=== PATIENT | male | born 1965 ===

== ENCOUNTER → 2024-12-23 12:57 | Outpatient (ROUT) | payer SELFPAY ==
[2024-12-23 13:39] LABS: Add Manual Diff / Slide Review NO; Hematocrit 43.0 % (41-53); Hemoglobin 14.5 g/dL (13.5-17.5); Lymphocytes Absolute Auto 1900 /uL (1100-4500); Mean Corpuscular HGB Conc 33.7 % (30-36); Mean Corpuscular Hemoglobin 29.9 PG (26-34); Mean Corpuscular Volume 88.6 fL (80-100); Platelet Count 295 X10^3/uL (150-400)
[2024-12-23 13:52] LABS: Alanine Aminotransferase 60 IU/L (<50); Albumin 5.0 g/dL (3.5-5.0); Albumin Globulin Ratio 1.4 (1.0-2.8); Alkaline Phosphatase 68 U/L (38-126); Blood Urea Nitrogen 22 mg/dL (9-20); Calcium 9.3 mg/dL (8.4-10.2); Carbon Dioxide 23 mmol/L (22-32); Chloride 103 mmol/L (98-107); Cholesterol 242 mg/dL (140-199); Estimated Glomerular Filt Rate > 60 mL/min (>60); Globulin 3.6 g/dL (1.7-4.1); Glucose 113 mg/dL (70-99); HDL Cholesterol 66 mg/dL (40-60); HEMOLYSIS < 15 (0-50); Potassium 4.7 mmol/L (3.4-5.1); Sodium 140 mmol/L (137-145); Total Protein 8.6 g/dL (6.3-8.2); Triglycerides 94 mg/dL (35-150); Uric Acid 5.9 mg/dL (3.5-8.5)
[2024-12-23 13:53] LABS: Hemoglobin A1C% w Est Avg Glu 6.0 % (4.0-6.0)
[2024-12-23 14:22] LABS: Prostate Specific Antigen 3.90 ng/mL (0.10-4.00)
[2024-12-23 16:38] LABS: Vitamin D 25 Hydroxy (D3) 23.5 ng/mL (30.0-100.0)
== END ==
PROVIDERS: Visit Provider Family Medicine
DX: Z00.00 Encounter for general adult medical examination without abnormal findings (principal); I10 Essential (primary) hypertension; E55.9 Vitamin D deficiency, unspecified
CPT/HCPCS: 80053; 80061; 82306; 83036; 84153; 84550; 85025